=== PATIENT | female | born 1950 | race Caucasian/White ===

== ENCOUNTER 2016-03-20 19:03 | Emergency (ER) | payer OTHER ==
[~2016-03-20] VITALS: Ht 167.6 cm; Wt 93.6 kg
[~2016-03-20 19:03] MED LIST: 12 HOUR DECONG120 M1 PO; BABY ASPIRIN81 MG PO; BACTRIM,SEPT1 TABLET PO; BENZONATATE100 MG PO; BUDEPRION SR150 MG PO; BUSPAR10 MG PO; BUSPIRONE HCL10 MG PO; CARVEDILOL12.5 MG PO; CYANOCOBALAM1000 MCG PO; ESCITALOPRAM OX20 MG PO; FLEXERIL10 MG PO; GLIPIZIDE XL10 MG PO; GLIPIZIDE10 MG PO; GLUCOPHAGE500 MG PO; GLUCOPHAGE850 MG PO; GUAIFENESIN WI120 M1 PO; INDOCIN50 MG PO; LEVO-T50 MCG PO; LEXAPRO20 MG PO; LIDODERM 5% P1 PATCH TD; LITHIUM CARBON300 MG PO; LO-DOSE ASPIRIN81 M2 PO; LYRICA50 MG PO; MACROBID100 MG PO; MECLIZINE HCL25 MG PO; METFORMIN HCL1000 MG PO; METOCLOPRAMIDE10 MG PO; MIRTAZAPINE45 MG PO; NABUMETONE500 MG PO; NAPROXEN500 MG PO; NASONEX17 GM NS; NORCO 5/3251 TABLET PO; OMEPRAZOLE20 MG PO; PREDNISONE50 MG PO; PRILOSEC20 MG PO; PRINIVIL10 MG PO; PRINIVIL20 MG PO; PROMETHAZINE HC25 M1 PO; RELAFEN500 MG PO; SIMVASTATIN20 M1 PO; SIMVASTATIN20 MG PO; ST. JOSEPH ASPI81 MG PO; SUCRALFATE1 GM PO; TAMIFLU30 MG PO; TRAMADOL HCL50 MG PO; TRANXENE T-TA3.75 MG PO; VERAPAMIL ER240 MG PO; WELLBUTRIN XL300 MG PO; ZOFRAN4 MG PO
[2016-03-20] MEDS ORDERED: PERCOCET 5/31 TABLET PO (21:03)
[2016-03-20] MEDS ORDERED: VALIUM5 MG PO (21:03)
[2016-03-20 21:47] VITALS: BP 132/71
== END 2016-03-20 21:47 | disposition home or self-care (01) ==
LOC: EME 19:03 → EXP 19:03
DX: S39.012A Strain of muscle, fascia and tendon of lower back, initial encounter (principal); M79.651 Pain in right thigh; X50.0XXA Overexertion from strenuous movement or load, initial encounter; E11.9 Type 2 diabetes mellitus without complications; I10 Essential (primary) hypertension; E78.00 Pure hypercholesterolemia, unspecified; Z79.82 Long term (current) use of aspirin
CPT/HCPCS: 99281; 99283; J1885

== ENCOUNTER 2016-04-12 09:48 | Emergency (ER) | payer OTHER ==
[~2016-04-12] VITALS: Ht 167.6 cm; Wt 87.0 kg
[~2016-04-12 09:48] MED LIST changes: +PERCOCET 5/31 TABLET PO; +VALIUM5 MG PO
[2016-04-12 10:50] LABS: HEMATOCRIT 39.4 % (36.0-46.0); MCH 29.2 PG (29.0-34.0); MCHC 33.5 G/DL (30.0-36.0); MCV 87.2 FL (83-99); MEAN PLAT.VOLUME 10.8 uM^3 (9.5-12.4); PLATELET COUNT 255 K/uL (156-360); RBC DIS.WIDTH-SD 43.4 % (39-53); RED BLOOD COUNT 4.52 M/uL (3.80-5.20); WHITE BLOOD COUNT 8.2 K/uL (4.1-10.2)
[2016-04-12 11:00] LABS: CHLORIDE 103 mEq/L (99-109); POTASSIUM 4.7 mEq/L (3.7-5.4); SODIUM 136 mEq/L (136-147)
[2016-04-12 11:02] LABS: GLUCOSE 234 mg/dL (70-99)
[2016-04-12 11:03] LABS: ANION GAP 12 MEQ/L (2-14)
[2016-04-12 11:06] LABS: GFR ESTIMATE (CALCULATED) 53 mL/min/
[2016-04-12 11:07] LABS: UREA NITROGEN (BUN) 16 mg/dL (9-23)
[2016-04-12 11:51] LABS: TOTAL BILIRUBIN 0.4 mg/dL (0.0-1.0)
[2016-04-12 11:52] LABS: ALKALINE PHOSPHATASE 93 IU/L (3-129)
[2016-04-12 11:55] LABS: DIRECT BILIRUBIN 0.1 mg/dL (0.0-0.3)
[2016-04-12 11:56] LABS: LIPASE 37 U/L (1.0-51.0)
[2016-04-12] MEDS ORDERED: WELLBUTRIN XL300 MG PO (12:08)
[2016-04-12] MEDS ORDERED: ZOFRAN ODT4 MG PO (12:46)
[2016-04-12 14:07] LABS: ADD MIUA? YES; BILIRUBIN NEGATIVE; BLOOD NEGATIVE; COLOR YELLOW ((YELLOW)); GLUCOSE (STRIP) NEGATIVE; KETONES 5; LEUKOCYTES SMALL; NITRITE NEGATIVE; PROTEIN (STRIP) NEGATIVE; UROBILINOGEN 0.2 MG/DL (0.2-1.0)
[2016-04-12 14:13] LABS: BACTERIA NONE SEEN /HPF; EPITHELIAL CELLS RARE /HPF; HYALINE CASTS 0-5 /LPF; MUCUS TRACE /LPF; RED BLOOD CELLS 0-5 /HPF (0-5); UCUL ADDED? NO; WHITE BLOOD CELLS 0-5 /HPF (0-5)
[2016-04-12 14:50] VITALS: BP 145/79
== END 2016-04-12 14:52 | disposition home or self-care (01) ==
LOC: EME 09:48
DX: R10.9 Unspecified abdominal pain (principal); R11.2 Nausea with vomiting, unspecified; E11.9 Type 2 diabetes mellitus without complications; E78.5 Hyperlipidemia, unspecified; I10 Essential (primary) hypertension
CPT/HCPCS: 74177; 80048; 80076; 81003; 83690; 85027; 99281; 99284; J2405; J7030

== ENCOUNTER 2016-05-29 13:44 | Emergency (ER) | payer OTHER ==
[~2016-05-29] VITALS: Ht 167.6 cm; Wt 58.5 kg
[~2016-05-29 13:44] MED LIST changes: +ZOFRAN ODT4 MG PO
[2016-05-29] MEDS ORDERED: INDOCIN50 MG PO (15:42)
[2016-05-29 16:06] VITALS: BP 132/95
== END 2016-05-29 16:14 | disposition home or self-care (01) ==
LOC: EME 13:44
DX: M72.2 Plantar fascial fibromatosis (principal); M77.31 Calcaneal spur, right foot; E11.9 Type 2 diabetes mellitus without complications; I10 Essential (primary) hypertension; K21.9 Gastro-esophageal reflux disease without esophagitis; Z79.82 Long term (current) use of aspirin
CPT/HCPCS: 73630; 99281; 99284

== ENCOUNTER 2016-06-11 16:22 | Emergency (ER) | payer OTHER ==
[~2016-06-11] VITALS: Ht 167.6 cm; Wt 91.2 kg
[2016-06-11] MEDS ORDERED: BUSPAR10 MG PO (17:01)
[2016-06-11] MEDS ORDERED: CLORAZEPATE D3.75 MG PO (17:01)
[2016-06-11] MEDS ORDERED: CARVEDILOL12.5 MG PO (17:01)
[2016-06-11] MEDS ORDERED: LISINOPRIL20 MG PO (17:01)
[2016-06-11] MEDS ORDERED: GLIPIZIDE XL10 MG PO (17:02)
[2016-06-11] MEDS ORDERED: OMEPRAZOLE40 M1 PO (17:02)
[2016-06-11] MEDS ORDERED: LEVOTHYROXINE50 MCG PO (17:02)
[2016-06-11] MEDS ORDERED: SIMVASTATIN20 MG PO (17:02)
[2016-06-11] MEDS ORDERED: METFORMIN HCL1000 MG PO (17:02)
[2016-06-11] MEDS ORDERED: ESCITALOPRAM OX20 MG PO (17:03)
[2016-06-11] MEDS ORDERED: MIRTAZAPINE45 MG PO (17:03)
[2016-06-11] MEDS ORDERED: LYRICA50 MG PO (17:03)
[2016-06-11] MEDS ORDERED: TRAMADOL HCL50 MG PO (17:04)
[2016-06-11] MEDS ORDERED: NAPROSYN500 MG PO (17:08)
[2016-06-11 17:20] VITALS: BP 140/85
== END 2016-06-11 17:33 | disposition home or self-care (01) ==
LOC: EME 16:22
DX: M77.31 Calcaneal spur, right foot (principal)
CPT/HCPCS: 99281; 99283; J1885

== ENCOUNTER 2016-09-25 09:09 | Emergency (ER) | payer OTHER ==
[~2016-09-25] VITALS: Ht 167.6 cm; Wt 90.5 kg
[~2016-09-25 09:09] MED LIST changes: +CLORAZEPATE D3.75 MG PO; +LEVOTHYROXINE50 MCG PO; +LISINOPRIL20 MG PO; +NAPROSYN500 MG PO; +OMEPRAZOLE40 M1 PO
[2016-09-25 12:23] LABS: ADD MIUA? NO; BILIRUBIN NEGATIVE; BLOOD NEGATIVE; COLOR YELLOW ((YELLOW)); GLUCOSE (STRIP) >=500; KETONES NEGATIVE; LEUKOCYTES NEGATIVE; NITRITE NEGATIVE; PROTEIN (STRIP) NEGATIVE; SPECIFIC GRAVITY 1.013 (1.000-1.030); UCUL ADDED? NO; UROBILINOGEN 0.2 MG/DL (0.2-1.0)
[2016-09-25] MEDS ORDERED: FLEXERIL10 MG PO (13:46)
[2016-09-25] MEDS ORDERED: TYLENOL WITH C1 EACH PO (13:46)
[2016-09-25 14:25] VITALS: BP 174/91
== END 2016-09-25 14:35 | disposition home or self-care (01) ==
LOC: EME 09:09
PROVIDERS: Emergency Medicine
DX: S39.012A Strain of muscle, fascia and tendon of lower back, initial encounter (principal); X58.XXXA Exposure to other specified factors, initial encounter; I10 Essential (primary) hypertension; E11.9 Type 2 diabetes mellitus without complications; Z79.84 Long term (current) use of oral hypoglycemic drugs
CPT/HCPCS: 72100; 81003; 99281; 99283; J1885; J3010

== ENCOUNTER 2017-01-19 09:04 | Emergency (ER) | payer OTHER ==
[~2017-01-19] VITALS: Ht 167.6 cm; Wt 87.2 kg
[~2017-01-19 09:04] MED LIST changes: +TYLENOL WITH C1 EACH PO
[2017-01-19 10:44] LABS: EOSINOPHIL (%) 1.3 % (0-5); EOSINOPHIL COUNT 0.1 K/uL (0-0.3); HEMATOCRIT 38.6 % (36.0-46.0); IMMATURE GRANULOCYTE (%) 0.4 % (0.0-0.7); INSTRUMENT ABS NEUTROPHIL CT 3.5 K/uL; LYMPHOCYTE COUNT 1.3 K/uL (1.0-2.8); MCH 29.8 PG (29.0-34.0); MCHC 33.2 G/DL (30.0-36.0); MCV 89.8 FL (83-99); MEAN PLAT.VOLUME 10.4 uM^3 (9.5-12.4); MONOCYTE (%) 6.5 % (3-12); MONOCYTE COUNT 0.3 K/uL (0-0.8); NEUTROPHIL (%) 66.7 % (45-76); NEUTROPHIL COUNT 3.5 K/uL (1.8-6.4); PLATELET COUNT 226 K/uL (156-360); RBC DIS.WIDTH-CV 13.1 % (11.8-14.6); RBC DIS.WIDTH-SD 42.5 % (39-53); WHITE BLOOD COUNT 5.2 K/uL (4.1-10.2)
[2017-01-19 11:04] LABS: TROP-I INTERPRETATION NEGATIVE; TROPONIN-I < 0.01 ng/mL (0.0-0.30)
[2017-01-19 11:16] LABS: ALKALINE PHOSPHATASE 73 IU/L (3-129); ANION GAP 11 MEQ/L (2-14); CHLORIDE 103 MEQ/L (99-109); GFR ESTIMATE (CALCULATED) 53 mL/min/; GLUCOSE 175 mg/dL (70-99); MAGNESIUM 1.6 mg/dl (1.3-2.7); POTASSIUM 4.7 MEQ/L (3.7-5.4); SAMPLE HEMOLYSIS CHECK 0; SAMPLE ICTERIC CHECK 0; SAMPLE LIPEMIA CHECK 0; SODIUM 141 MEQ/L (136-147); TOTAL BILIRUBIN 0.5 MG/DL (0.0-1.0); UREA NITROGEN (BUN) 14 mg/dL (9-23)
[2017-01-19 14:15] LABS: ADD MIUA? YES; BILIRUBIN NEGATIVE; BLOOD NEGATIVE; COLOR YELLOW ((YELLOW)); GLUCOSE (STRIP) NEGATIVE; KETONES 20; LEUKOCYTES MODERATE; NITRITE NEGATIVE; PROTEIN (STRIP) NEGATIVE; UROBILINOGEN 0.2 MG/DL (0.2-1.0)
[2017-01-19 14:18] LABS: BACTERIA RARE /HPF; EPITHELIAL CELLS RARE /HPF; MUCUS TRACE /LPF; RED BLOOD CELLS 0-5 /HPF (0-5); UCUL ADDED? YES
[2017-01-19] MEDS ORDERED: ZOFRAN ODT4 MG PO (15:35)
[2017-01-19] MEDS ORDERED: MACROBID100 MG PO (15:35)
[2017-01-19 17:07] VITALS: BP 141/60
== END 2017-01-19 17:09 | disposition home or self-care (01) ==
LOC: EME 09:04
PROVIDERS: Emergency Medicine
DX: N39.0 Urinary tract infection, site not specified (principal); E86.0 Dehydration; R19.7 Diarrhea, unspecified; I10 Essential (primary) hypertension; E78.5 Hyperlipidemia, unspecified; E11.9 Type 2 diabetes mellitus without complications; Z79.84 Long term (current) use of oral hypoglycemic drugs
CPT/HCPCS: 80053; 81003; 83735; 83880; 84443; 84484; 85025; 87086; 87493; 93005; 99281; 99285; J2405; J2765; J7030

== ENCOUNTER 2017-01-21 09:57 | Emergency (ER) | payer OTHER ==
[~2017-01-21] VITALS: Ht 167.6 cm; Wt 87.1 kg
[2017-01-21 10:19] LABS: POINT-OF-CARE METER ID UU13113778
[2017-01-21 10:39] LABS: HEMATOCRIT 38.7 % (36.0-46.0); MCH 29.7 PG (29.0-34.0); MCHC 33.6 G/DL (30.0-36.0); MCV 88.6 FL (83-99); MEAN PLAT.VOLUME 10.6 uM^3 (9.5-12.4); PLATELET COUNT 228 K/uL (156-360); RBC DIS.WIDTH-CV 12.9 % (11.8-14.6); RBC DIS.WIDTH-SD 41.6 % (39-53); RED BLOOD COUNT 4.37 M/uL (3.80-5.20); WHITE BLOOD COUNT 5.2 K/uL (4.1-10.2)
[2017-01-21 10:45] LABS: CHLORIDE 107 mEq/L (99-109); POTASSIUM 3.9 mEq/L (3.7-5.4)
[2017-01-21 10:46] LABS: SODIUM 138 mEq/L (136-147)
[2017-01-21 10:48] LABS: GLUCOSE 209 mg/dL (70-99)
[2017-01-21 10:49] LABS: ANION GAP 13 MEQ/L (2-14)
[2017-01-21 10:50] LABS: TOTAL BILIRUBIN 0.5 mg/dL (0.0-1.0)
[2017-01-21 10:51] LABS: ALKALINE PHOSPHATASE 83 IU/L (3-129); GFR ESTIMATE (CALCULATED) > 59 mL/min/
[2017-01-21 10:53] LABS: UREA NITROGEN (BUN) 10 mg/dL (9-23)
[2017-01-21 11:42] LABS: ADD MIUA? YES; BILIRUBIN NEGATIVE; BLOOD NEGATIVE; COLOR YELLOW ((YELLOW)); GLUCOSE (STRIP) 50; KETONES 80; LEUKOCYTES NEGATIVE; NITRITE NEGATIVE; PROTEIN (STRIP) NEGATIVE; SPECIFIC GRAVITY 1.018 (1.000-1.030); UROBILINOGEN 0.2 MG/DL (0.2-1.0)
[2017-01-21 11:49] LABS: BACTERIA NONE SEEN /HPF; EPITHELIAL CELLS RARE /HPF; GRANULAR CASTS 0-5 /LPF; HYALINE CASTS 0-5 /LPF; MUCUS TRACE /LPF; RED BLOOD CELLS 0-5 /HPF (0-5); UCUL ADDED? NO; WHITE BLOOD CELLS 0-5 /HPF (0-5)
[2017-01-21 16:04] VITALS: BP 145/79
== END 2017-01-21 16:05 | disposition home or self-care (01) ==
LOC: EME 09:57
DX: R11.0 Nausea (principal); R19.7 Diarrhea, unspecified; K21.9 Gastro-esophageal reflux disease without esophagitis; I10 Essential (primary) hypertension; E78.5 Hyperlipidemia, unspecified; E11.9 Type 2 diabetes mellitus without complications; J45.909 Unspecified asthma, uncomplicated; F41.9 Anxiety disorder, unspecified; F32.9 Major depressive disorder, single episode, unspecified; Z79.84 Long term (current) use of oral hypoglycemic drugs
CPT/HCPCS: 74176; 80053; 81003; 82948; 85027; 87493; 99281; 99284; J1630; J2405; J7030

== ENCOUNTER 2017-01-31 08:17 | Inpatient (IN) | payer OTHER ==
[~2017-01-31] VITALS: Ht 167.6 cm; Wt 83.1 kg
[~2017-01-31 08:17] MED LIST changes: +BUSPAR15 MG PO
[2017-01-31 09:00] LABS: APPEARANCE SL.HAZY ((CLEAR)); BILIRUBIN NEGATIVE; BLOOD NEGATIVE; COLOR AMBER ((YELLOW)); GLUCOSE (STRIP) NEGATIVE; KETONES NEGATIVE; LEUKOCYTES NEGATIVE; NITRITE NEGATIVE; PROTEIN (STRIP) 30; SPECIFIC GRAVITY 1.017 (1.000-1.030); UROBILINOGEN 0.2 MG/DL (0.2-1.0)
[2017-01-31 09:08] LABS: BACTERIA RARE /HPF; EPITHELIAL CELLS NONE SEEN /HPF; MUCUS TRACE /LPF; RED BLOOD CELLS 0-5 /HPF (0-5); UCUL ADDED? NO; WHITE BLOOD CELLS 0-5 /HPF (0-5)
[2017-01-31 09:09] LABS: BASOPHIL (%) 0.2 % (0-1); EOSINOPHIL (%) 0.2 % (0-5); HEMATOCRIT 37.9 % (36.0-46.0); HEMOGLOBIN 12.3 G/DL (11.9-15.5); IMMATURE GRANULOCYTE (%) 0.4 % (0.0-0.7); LYMPHOCYTE COUNT 1.3 K/uL (1.0-2.8); MCH 29.3 PG (29.0-34.0); MCHC 32.5 G/DL (30.0-36.0); MCV 90.2 FL (83-99); MONOCYTE (%) 5.9 % (3-12); MONOCYTE COUNT 0.3 K/uL (0-0.8); NEUTROPHIL (%) 68.3 % (45-76); NEUTROPHIL COUNT 3.6 K/uL (1.8-6.4); PLATELET COUNT 205 K/uL (156-360); RBC DIS.WIDTH-CV 13.3 % (11.8-14.6); RBC DIS.WIDTH-SD 43.9 % (39-53); WHITE BLOOD COUNT 5.3 K/uL (4.1-10.2)
[2017-01-31 09:09] LABS: AMPHETAMINE NEGATIVE (500 ng/mL); BARBITURATES NEGATIVE (200 ng/mL); BENZODIAZEPINES PRESUMPTIVE POSITIVE (150 ng/mL); BUPRENORPHINE NEGATIVE (10 ng/mL); COCAINE NEGATIVE (150 ng/mL); METHADONE NEGATIVE (200 ng/mL); METHAMPHETAMINE NEGATIVE (500 ng/mL); OPIATES (MORPHINE) NEGATIVE (100 ng/mL); OXYCODONE NEGATIVE (100 ng/mL); PHENCYCLIDINE NEGATIVE (25 ng/mL); PROPOXYPHENE NEGATIVE (300 ng/mL); THC CANNABINOIDS NEGATIVE (50 ng/mL); TRICYCLIC ANTIDEPRESSANTS NEGATIVE (300 ng/mL)
[2017-01-31 09:22] LABS: ALBUMIN 3.7 g/dL (3.2-4.8); CHLORIDE 102 mEq/L (99-109); POTASSIUM 3.4 mEq/L (3.7-5.4); SODIUM 137 mEq/L (136-147)
[2017-01-31 09:24] LABS: GLUCOSE 114 mg/dL (70-99); TOTAL PROTEIN 6.6 g/dL (6.4-8.3)
[2017-01-31 09:26] LABS: TOTAL BILIRUBIN 0.4 mg/dL (0.0-1.0)
[2017-01-31 09:27] LABS: SERUM ETHYL ALCOHOL < 10 mg/dL
[2017-01-31 09:28] LABS: CREATININE 9.6 mg/dL (0.6-1.3); GFR ESTIMATE (CALCULATED) 4 mL/min/
[2017-01-31 09:29] LABS: ALKALINE PHOSPHATASE 69 IU/L (3-129)
[2017-01-31 09:30] LABS: AST (GOT) 22 IU/L (2-34); TROP-I INTERPRETATION NEGATIVE; TROPONIN-I 0.01 ng/mL (0.0-0.30); UREA NITROGEN (BUN) 52 mg/dL (9-23)
[2017-01-31 09:31] LABS: SALICYLATE < 5.0 MG/DL (15-30)
[2017-01-31 09:32] LABS: ALT (GPT) 11 IU/L (3-49); CREATINE KINASE 63 IU/L (1-294); TOTAL CK 63 IU/L (1-294)
[2017-01-31 09:37] LABS: CK-MB 1.5 ng/mL (0.0-4.9); CKMB RELATIVE INDEX 2.4 (0.0-3.9)
[2017-01-31 10:09] LABS: ACETAMINOPHEN (TYLENOL) < 10 mcg/mL (10-30)
[2017-01-31 10:15] LABS: BENZODIAZEPINES, URINE SCREEN POSITIVE (200 ng/mL)
[2017-01-31] MEDS ORDERED: QUETIAPINE FUMA25 MG PO (11:18)
[2017-01-31 12:19] LABS: THYROTROPIN (TSH) 1.1 MIU/L (0.4-5.5)
[2017-01-31 14:08] VITALS: BP 136/73
[2017-01-31 14:47] LABS: C DIFF TOXIN POSITIVE (NEGATIVE)
[2017-01-31 15:25] VITALS: BP 183/86
[2017-01-31 17:15] LABS: CHLORIDE 100 MEQ/L (99-109); CREATININE 8.9 MG/DL (0.6-1.3); GFR ESTIMATE (CALCULATED) 5 mL/min/; GLUCOSE 51 mg/dL (70-99); POTASSIUM 3.5 MEQ/L (3.7-5.4); SODIUM 133 MEQ/L (136-147); UREA NITROGEN (BUN) 51 mg/dL (9-23)
[2017-01-31 19:30] VITALS: BP 130/92
[2017-01-31 20:34] VITALS: BP 148/78
[2017-01-31 22:28] LABS: CHLORIDE 102 MEQ/L (99-109); CREATININE 9.7 MG/DL (0.6-1.3); GFR ESTIMATE (CALCULATED) 4 mL/min/; MAGNESIUM 1.5 mg/dl (1.3-2.7); PHOSPHORUS 4.8 mg/dL (2.5-4.9); POTASSIUM 3.6 MEQ/L (3.7-5.4); SODIUM 136 MEQ/L (136-147); UREA NITROGEN (BUN) 49 mg/dL (9-23)
[2017-01-31 22:29] LABS: GLUCOSE 123 mg/dL (70-99)
[2017-02-01 04:00] VITALS: BP 142/91
[2017-02-01 06:35] LABS: ALBUMIN 3.4 G/DL (3.2-4.8); CHLORIDE 104 MEQ/L (99-109); CREATININE 9.6 MG/DL (0.6-1.3); GFR ESTIMATE (CALCULATED) 4 mL/min/; PHOSPHORUS 4.3 mg/dL (2.5-4.9); POTASSIUM 3.2 MEQ/L (3.7-5.4); SODIUM 137 MEQ/L (136-147); UREA NITROGEN (BUN) 48 mg/dL (9-23)
[2017-02-01 06:37] LABS: GLUCOSE 57 mg/dL (70-99)
[2017-02-01 08:10] VITALS: BP 176/79
[2017-02-01 11:52] VITALS: BP 142/73
[2017-02-01 16:16] VITALS: BP 134/65
[2017-02-01 19:45] VITALS: BP 146/69
[2017-02-01 21:22] LABS: UR CREATININE CONCENTRATION 344.7 MG/DL
[2017-02-01 22:51] VITALS: BP 116/56
[2017-02-02 04:03] VITALS: BP 122/71
[2017-02-02 06:27] LABS: CHLORIDE 108 MEQ/L (99-109); GFR ESTIMATE (CALCULATED) 6 mL/min/; PHOSPHORUS 3.6 mg/dL (2.5-4.9); POTASSIUM 3.8 MEQ/L (3.7-5.4); SODIUM 139 MEQ/L (136-147); UREA NITROGEN (BUN) 47 mg/dL (9-23)
[2017-02-02 06:28] LABS: CREATININE 7.5 MG/DL (0.6-1.3); GLUCOSE 236 mg/dL (70-99)
[2017-02-02 06:50] LABS: BASOPHIL (%) 0.4 % (0-1); EOSINOPHIL (%) 2.2 % (0-5); EOSINOPHIL COUNT 0.1 K/uL (0-0.3); IMMATURE GRANULOCYTE (%) 1.1 % (0.0-0.7); LYMPHOCYTE (%) 43.8 % (15-42); LYMPHOCYTE COUNT 1.2 K/uL (1.0-2.8); MCH 29.9 PG (29.0-34.0); MCHC 33.2 G/DL (30.0-36.0); MCV 89.9 FL (83-99); MONOCYTE (%) 9.5 % (3-12); MONOCYTE COUNT 0.3 K/uL (0-0.8); NEUTROPHIL COUNT 1.2 K/uL (1.8-6.4); RBC DIS.WIDTH-CV 13.5 % (11.8-14.6); RBC DIS.WIDTH-SD 44.2 % (39-53); RED BLOOD COUNT 3.45 M/uL (3.80-5.20); WHITE BLOOD COUNT 2.7 K/uL (4.1-10.2)
[2017-02-02 06:52] LABS: HEMOGLOBIN 10.3 G/DL (11.9-15.5)
[2017-02-02 07:09] VITALS: BP 130/62
[2017-02-02 07:09] LABS: PLAT.SUFFICIENCY DECREASED
[2017-02-02 07:12] LABS: PLATELET COUNT 141 K/uL (156-360)
[2017-02-02 11:10] VITALS: BP 149/79
[2017-02-02 16:47] VITALS: BP 174/75
[2017-02-02 19:22] VITALS: BP 146/86
[2017-02-02 23:55] VITALS: BP 135/63
[2017-02-03 04:01] VITALS: BP 129/58
[2017-02-03 06:33] LABS: ALBUMIN 3.2 G/DL (3.2-4.8); CHLORIDE 108 MEQ/L (99-109); GFR ESTIMATE (CALCULATED) 9 mL/min/; GLUCOSE 159 mg/dL (70-99); PHOSPHORUS 2.9 mg/dL (2.5-4.9); SODIUM 141 MEQ/L (136-147); UREA NITROGEN (BUN) 42 mg/dL (9-23)
[2017-02-03 06:35] LABS: CREATININE 5.1 MG/DL (0.6-1.3)
[2017-02-03 07:42] VITALS: BP 142/67
[2017-02-03 12:05] VITALS: BP 159/65
[2017-02-03 15:56] VITALS: BP 173/77
[2017-02-03 23:45] VITALS: BP 156/69
[2017-02-04] VITALS (7 sets, daily range): BP systolic 140–183; BP diastolic 64–88
[2017-02-04 07:48] LABS: ALBUMIN 3.4 G/DL (3.2-4.8); CHLORIDE 108 MEQ/L (99-109); GFR ESTIMATE (CALCULATED) 20 mL/min/; GLUCOSE 179 mg/dL (70-99); PHOSPHORUS 2.7 mg/dL (2.5-4.9); POTASSIUM 4.4 MEQ/L (3.7-5.4); SODIUM 144 MEQ/L (136-147); UREA NITROGEN (BUN) 32 mg/dL (9-23)
[2017-02-04 07:49] LABS: CREATININE 2.6 MG/DL (0.6-1.3)
[2017-02-05 03:15] VITALS: BP 130/70
[2017-02-05 05:50] LABS: ALBUMIN 3.4 G/DL (3.2-4.8); CHLORIDE 106 MEQ/L (99-109); POTASSIUM 4.5 MEQ/L (3.7-5.4); SODIUM 138 MEQ/L (136-147)
[2017-02-05 06:12] LABS: GFR ESTIMATE (CALCULATED) 28 mL/min/; GLUCOSE 133 mg/dL (70-99); UREA NITROGEN (BUN) 23 mg/dL (9-23)
[2017-02-05 06:13] LABS: CREATININE 1.9 MG/DL (0.6-1.3)
[2017-02-05 08:25] VITALS: BP 133/68
[2017-02-05 16:15] VITALS: BP 179/82
[2017-02-05 19:41] VITALS: BP 153/90
[2017-02-05 23:13] VITALS: BP 143/37
[2017-02-06 06:45] VITALS: BP 132/65
[2017-02-06 06:47] LABS: ALBUMIN 3.5 G/DL (3.2-4.8); CHLORIDE 104 MEQ/L (99-109); CREATININE 1.5 MG/DL (0.6-1.3); GFR ESTIMATE (CALCULATED) 37 mL/min/; GLUCOSE 158 mg/dL (70-99); PHOSPHORUS 2.9 mg/dL (2.5-4.9); SODIUM 141 MEQ/L (136-147); UREA NITROGEN (BUN) 16 mg/dL (9-23)
[2017-02-06 10:39] VITALS: BP 163/74
[2017-02-06 15:00] VITALS: BP 151/71
[2017-02-06 23:49] VITALS: BP 171/77
[2017-02-07 04:30] VITALS: BP 132/60
[2017-02-07 06:33] LABS: BASOPHIL (%) 0.5 % (0-1); EOSINOPHIL (%) 2.3 % (0-5); EOSINOPHIL COUNT 0.1 K/uL (0-0.3); HEMATOCRIT 35.9 % (36.0-46.0); HEMOGLOBIN 11.6 G/DL (11.9-15.5); IMMATURE GRANULOCYTE (%) 1.9 % (0.0-0.7); LYMPHOCYTE (%) 25.3 % (15-42); LYMPHOCYTE COUNT 1.1 K/uL (1.0-2.8); MCH 28.9 PG (29.0-34.0); MCHC 32.3 G/DL (30.0-36.0); MCV 89.3 FL (83-99); MONOCYTE (%) 8.1 % (3-12); MONOCYTE COUNT 0.4 K/uL (0-0.8); NEUTROPHIL (%) 61.9 % (45-76); NEUTROPHIL COUNT 2.7 K/uL (1.8-6.4); RBC DIS.WIDTH-CV 12.7 % (11.8-14.6); RBC DIS.WIDTH-SD 41.6 % (39-53); RED BLOOD COUNT 4.02 M/uL (3.80-5.20); WHITE BLOOD COUNT 4.3 K/uL (4.1-10.2)
[2017-02-07 06:42] LABS: PLATELET COUNT 214 K/uL (156-360)
[2017-02-07 06:53] LABS: ALBUMIN 3.9 G/DL (3.2-4.8); CHLORIDE 106 MEQ/L (99-109); CREATININE 1.3 MG/DL (0.6-1.3); GFR ESTIMATE (CALCULATED) 44 mL/min/; GLUCOSE 169 mg/dL (70-99); PHOSPHORUS 2.8 mg/dL (2.5-4.9); POTASSIUM 4.2 MEQ/L (3.7-5.4); SODIUM 144 MEQ/L (136-147); UREA NITROGEN (BUN) 13 mg/dL (9-23)
[2017-02-07 07:26] VITALS: BP 140/67
[2017-02-07 11:15] VITALS: BP 136/65
[2017-02-07 16:14] VITALS: BP 150/84
[2017-02-07 20:34] VITALS: BP 164/73
[2017-02-08 00:10] VITALS: BP 124/76
[2017-02-08 07:47] VITALS: BP 142/65
[2017-02-08 09:29] LABS: CREATININE 1.2 MG/DL (0.6-1.3)
[2017-02-08] MEDS ORDERED: METRONIDAZOLE500 MG PO (14:08)
[2017-02-08] MEDS ORDERED: AMLODIPINE BESY10 MG PO (14:08)
[2017-02-08 16:15] VITALS: BP 142/70
== END 2017-02-08 17:25 | DRG 371 ==
LOC: EME 08:17 → EDOF 11:42 → 5EAST 11:42 → ENRESERV 11:52 → EDOF 12:27 → ENRESERV 12:32 → 5EAST 13:51
PROVIDERS: Emergency Medicine; Hospitalist; Internal Medicine; Nurse Practitioner Family
DX: A04.72 Enterocolitis due to Clostridium difficile, not specified as recurrent (principal); N17.0 Acute kidney failure with tubular necrosis; E11.649 Type 2 diabetes mellitus with hypoglycemia without coma; E03.9 Hypothyroidism, unspecified; F33.1 Major depressive disorder, recurrent, moderate; I11.0 Hypertensive heart disease with heart failure; K31.84 Gastroparesis; E78.5 Hyperlipidemia, unspecified; E87.2 Acidosis; R11.0 Nausea; E11.43 Type 2 diabetes mellitus with diabetic autonomic (poly)neuropathy; E83.51 Hypocalcemia; E86.0 Dehydration; E87.6 Hypokalemia; F41.9 Anxiety disorder, unspecified; F60.7 Dependent personality disorder; F34.1 Dysthymic disorder; J45.909 Unspecified asthma, uncomplicated; K21.9 Gastro-esophageal reflux disease without esophagitis; K44.9 Diaphragmatic hernia without obstruction or gangrene; G89.29 Other chronic pain; K29.70 Gastritis, unspecified, without bleeding; Z68.29 Body mass index [BMI] 29.0-29.9, adult; I50.9 Heart failure, unspecified; T37.3X5A Adverse effect of other antiprotozoal drugs, initial encounter; W19.XXXA Unspecified fall, initial encounter; Y92.009 Unspecified place in unspecified non-institutional (private) residence as the place of occurrence of the external cause; Z79.84 Long term (current) use of oral hypoglycemic drugs; Z79.899 Other long term (current) drug therapy; Z82.49 Family history of ischemic heart disease and other diseases of the circulatory system; Z83.3 Family history of diabetes mellitus
CPT/HCPCS: 70450; 71020; 74020; 74176; 76770; 80048; 80048 91; 80053; 80069; 80306 90; 81003; 82306; 82330; 82436; 82550; 82553; 82565; 82570; 82948; 83605; 83735; 84100; 84156; 84300; 84443; 84484; 84520; 84540; 84999; 85025; 87493; 93005; 94799; 97530 GO; 97530 GP; 99281; 99285; G0480; J1644; J1815; J2310; J2405; J2765; J7030; J7042; J7120

== ENCOUNTER 2017-09-23 11:49 | Emergency (ER) | payer OTHER ==
[~2017-09-23] VITALS: Ht 167.6 cm; Wt 88.6 kg
[~2017-09-23 11:49] MED LIST changes: +AMLODIPINE BESY10 MG PO; +METRONIDAZOLE500 MG PO; +QUETIAPINE FUMA25 MG PO
[2017-09-23] MEDS ORDERED: ZOFRAN ODT4 MG PO (13:25)
[2017-09-23 13:56] VITALS: BP 119/56
== END 2017-09-23 13:57 | disposition home or self-care (01) ==
LOC: EME 11:49
DX: R11.2 Nausea with vomiting, unspecified (principal); M79.1 Myalgia
CPT/HCPCS: 99281; 99283; J1885